=== PATIENT | female | born 1950 | race Caucasian/White ===

== ENCOUNTER 2021-09-26 11:07 | Day surgery (SDC) | payer MEDICARE, OTHER ==
[~2021-09-26 11:07] MED LIST: BUPIVACAINE 0.5% VIAL IJ ONE; Lactated Ringers 1,000 ML IV ONE; XYLOCAINE 1% HCL 20 ML MDV ONE
[2021-09-26] MEDS ORDERED: TRANDATE 20 MG/4 ML SYRINGE IV ONE (11:08)
[2021-09-26] MEDS ORDERED: SUBLIMAZE 100 MCG/2 ML IV ONE (11:08)
[2021-09-26] MEDS ORDERED: Lactated Ringers 1,000 ML IV SCH (12:00)
[2021-09-26] MEDS ORDERED: CEFAZOLIN 2 GM-D5W BAG** 2 GM/50 ML ML IV SCH (12:00)
[2021-09-26 12:45] LABS: ALBUMIN 4.4 g/dL (3.5-5.0); ALKALINE PHOSPHATASE 47 U/L (38-126); BLOOD UREA NITROGEN 16 mg/dL (7-17); CHLORIDE 104 mmol/L (98-107); Calcium 9.9 mg/dL (8.4-10.2); Carbon Dioxide 27 mmol/L (22-30); Creatinine 1 0.73 mg/dL (0.52-1.04); EST GLOMERULAR FILTRATION RATE > 60.0 ML/MIN; Glucose 88 mg/dL (74-106); SGOT/AST 30 U/L (14-36); SGPT/ALT 15 U/L (0-35); SODIUM 140 mmol/L (137-145); Total Protein 7.2 g/dL (6.3-8.2)
[2021-09-26 12:48] LABS: Hematocrit 41.1 % (35-47); Hemoglobin 13.3 gm/dl (12.0-16.0); Mean Corpuscular Hgb Concent. 32.4 g/dl (32-36); Mean Platelet Volume 10.7 fl (7.5-11.0); Platelet Count 380 K/mm3 (150-450); Red Blood Count 4.03 M/mm3 (4.1-5.4); Red Cell Distribution Width 13.2 % (11.5-14.0); White Blood Count 8.8 K/mm3 (4.0-10.5)
[2021-09-26] MEDS ORDERED: Versed 2 MG/2 ML Injection ONE (13:17)
[2021-09-26] MEDS ORDERED: Zemuron 100 MG/10 ML ONE (13:17)
[2021-09-26] MEDS ORDERED: DIPRIVAN 200 MG/20 ML IV ONE (13:17)
[2021-09-26] MEDS ORDERED: SUBLIMAZE 250 MCG/5 ML ONE (13:18)
[2021-09-26] MEDS ORDERED: Decadron 4 MG INJ ONE ×2 (13:45)
[2021-09-26] MEDS ORDERED: Zofran 4 MG/2 ML VIAL ONE (14:13)
[2021-09-26] MEDS ORDERED: BRIDION 200MG/2ML IV ONE (14:13)
--- NOTE | 2021-09-26 15:06 | XRAY ---
Indication: ORIF malleolar fracture. Intraoperative fluoroscopy provided for 3 minute 14 seconds. 15 digital spot images submitted for interpretation ultimately demonstrates lateral fixation plate/screws and single distal tibia screw fixating lateral and posterior malleolus fractures. Correlate with intraoperative findings/report.
[2021-09-26] MEDS ORDERED: Naropin 0.5% 30 ML VIAL ONE (15:32)
[2021-09-26] MEDS ORDERED: Xylocaine-Mpf 2% 5 Ml Vial ONE (15:32)
[2021-09-26] MEDS ORDERED: SUBLIMAZE 100 MCG/2 ML ONE (15:56)
[2021-09-26 16:41] VITALS: BP 142/75
[2021-09-26 16:47] VITALS: PULSE 82
[2021-09-26 17:48] VITALS: O2SAT 95
--- NOTE | 2021-09-27 08:28 | OP ---
SURGERY DATE/TIME: 09/26/2021 1316 PREOPERATIVE DIAGNOSES: 1) Left ankle fracture bimalleolar equivalent closed fracture. 2) Pain left ankle. 3) Instability of left ankle. POSTOPERATIVE DIAGNOSES: 1) Left ankle fracture bimalleolar equivalent closed fracture. 2) Pain left ankle. 3) Instability of left ankle. PROCEDURE: Open reduction internal fixation of left fibula and posterior malleolar fracture. SURGEON: Raz Naylor DPM. FLOOR LAYER HELPER: None. ANESTHESIA: General along with a postoperative regional popliteal and saphenous block. HEMOSTASIS: Thigh tourniquet set to 350 mm of Mercury for 71 minutes. ESTIMATED BLOOD LOSS: Less than 20 cc. MATERIALS: Veronica distal lateral fibular plating system anatomic six-hole plate and a 3.5 mm x 42 mm cannulated partially threaded screw with 2 cc of StrataGraft Plus mineralized bone matrix. INJECTABLES: See anesthesia report. INDICATION FOR SURGERY: Isha is a very pleasant 70 -year-old female who presents to my service with an ankle fracture to the left lower extremity after a fall while walking her dogs early on the morning of 09/19/2021. She presented to the emergency department following the fall which demonstrated a bimalleolar equivalent to the left ankle, this was deemed to be unstable and surgical intervention was deemed to be necessary in order for her to return to normal function without instability as permanent result. The patient understands all risks, benefits and complications of surgical intervention including but not limited to delayed wound healing, nonwound healing, delayed bone healing, nonbone healing, nonunion, possibility of failure of surgical intervention and need for surgical intervention in the future. The patient understands all of the risks and wishes to proceed. Plenty of time was allowed for patient to ask questions along with her daughter which were answered to the patient's apparent satisfaction. It is with that we decided to proceed. There was a delay of approximately seven days' time in order to allow for the soft tissue swelling to diminish. DESCRIPTION OF PROCEDURE AND FINDINGS: The patient is brought into the OR and placed on the OR table in the supine position. At this time adequate general anesthesia was administered to the patient and so she was sedated. A very well padded left thigh tourniquet was applied and the tourniquet was set to 350 mm of Mercury. At this time the left lower extremity was prepped and draped in the typical sterile fashion. At this time attention was then directed on a lateral view and fluoroscopy of the fracture which was demonstrated to be in the posterior-superior orientation of the fibula. This was marked out utilizing a marking pen and [place] elevator. The anatomical landmarks were also identified. At this time an Esmarch was utilized to exsanguinate the leg to the tourniquet. The tourniquet was set to 350 mm of Mercury and the Esmarch was removed from the leg. At this time a 15 blade was utilized to make an incision at the posterior aspect of the fibula being careful not to damage any neurovascular structures along the way using a combination of sharp and blunt dissection until the fibula was identified. At this time a significant amount of hematoma was identified at the fracture site and this was flushed using sterile saline. A bone reduction forceps was then utilized to clamp the posterior fragment of the fibula to the anterior fragment this was checked under fluoroscopy and deemed to be in adequate position. At this time a lag screw was introduced from anterior proximal to posterior distal making excellent fixation within the bone introduced in the lag technique. At this time the bone reduction forceps was then removed and the reduction was deemed to be adequate. At this time there was assessment of the fibular fracture which had a transverse nature at its distal extent and appeared to be comminuted. At this time an anatomical locking plate was introduced and checked under fluoroscopy for position. The distal aspect of the plate was fixated using a combination of locking and nonlocking screws in order to bring the plate flush to the surface of the bone and then the proximal aspect of the plate was then fixated to the proximal fracture site with bicortical fixation and locking screws for stability. At this time the fracture site was assessed and deemed to be adequate in reduction. The ankle was then checked under a mortise view and the ankle joint appeared to be congruent and in anatomical position. At this time assessment of the posterior malleolar fragment was made and deemed to be more than 25% of the joint surface as indicated with prior measurements prior to surgical intervention. At this time a tenaculum was utilized to compress the posterior fragment with the large tenaculum. A 3.5 mm 42 mm cannulated screw is introduced from an anterior to posterior orientation with a medial to lateral orientation as well in order to gain bicortical reduction through the fracture fragment. All temporary fixation devices were removed and the final shots were taken of the ankle fracture deeming to be in near anatomic position. At this time the surgical site was flushed with copious amounts of sterile saline. The StrataGraft was placed in the fracture deficits that were apparent. A 2-0 Vicryl was utilized to coapt the subcutaneous skin edges in a buried interrupted-type fashion and then the skin was coapted utilizing 3-0 Nylon in a horizontal mattress-type fashion. The extremity was then cleansed with a sterile saline and dried. Betadine was applied to the incision sites and well-padded posterior splint consisting of Betadine, Adaptic, 4x4, Kerlix, cast padding, plaster and a 4-inch and 6-inch MONIK were applied into the left lower extremity with the foot at 90 degrees and the knee bent in order to knock out the gastrocnemius and prevent contractures of the equina. The patient was then provided a popliteal nerve block. See anesthesia report for details. Following this the patient was reversed from anesthesia and brought to the postoperative anesthesia care unit with vital signs stable and vascular status intact. The patient handled the procedure as well as the anesthesia without complication. The patient orders as indicated in the patient's postoperative discharge chart.
--- NOTE | 2021-09-27 08:54 | XRAY ---
3 minutes and 14 seconds fluoroscopy time in surgery for ORIF of the left ankle.
== END 2021-09-26 17:30 | disposition home or self-care (01) ==
LOC: SDC 11:07
PROVIDERS: ATTEND Podiatrist Foot & Ankle Surgery
DX: S82.842A Displaced bimalleolar fracture of left lower leg, initial encounter for closed fracture (principal); M25.572 Pain in left ankle and joints of left foot; M25.372 Other instability, left ankle; I10 Essential (primary) hypertension; Z79.899 Other long term (current) drug therapy; E78.5 Hyperlipidemia, unspecified
CPT/HCPCS: 27814; 36415; 73600; 76000; 76937; 80053; 85027; 93005; 99100; J0690; J1100; J2250; J2405; J2704; J2795; J3010